=== PATIENT | male | born 1985 | race Caucasian/White ===

== ENCOUNTER 2020-06-26 03:26 | Emergency (ER) | payer OTHER, SELFPAY ==
[2020-06-26] VITALS (17 sets, daily range): BP systolic 104–122; BP diastolic 61–93; PULSE 59–80; RESP 15–20; TEMP 37; O2SAT 98–100
--- NOTE | 2020-06-26 03:27 | PC.NURSE ---
ERP VORB no lab work or other testing needs to be performed on PT. RN to continue to monitor via telemetry.
--- NOTE | 2020-06-26 03:27 | PC.NURSE ---
per ERP pt placed on telemetry for cardiac and respiratory monitoring.
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
--- NOTE | 2020-06-26 06:25 | PC.NURSE ---
attempted to call pt. girlfriend Linda. Pt. girlfriend's phone is not taking phone calls at this time.
--- NOTE | 2020-06-26 06:38 | PC.NURSE ---
Called pt. mother to pick pt. up. states she is in [place] right now and cannot scrap picker the pt. Pt. mother states she will call the pt.'s aunt valdo to see if she can provide pt. with a ride. PT. mother states he might have to stay a while.
--- NOTE | 2020-06-26 06:49 | PC.NURSE ---
Pt. mother called back to inform RN and Pt. that aunt mary ann will be back to pick pt. up at 0830.
== END 2020-06-26 06:49 | disposition home or self-care (01) ==
PROVIDERS: Emergency Provider Emergency Medicine
DX: R41.82 Altered mental status, unspecified (principal); G40.909 Epilepsy, unspecified, not intractable, without status epilepticus; T50.905A Adverse effect of unspecified drugs, medicaments and biological substances, initial encounter
CPT/HCPCS: 99281

== ENCOUNTER 2020-12-28 18:17 | Emergency (ER) | payer OTHER, SELFPAY ==
[2020-12-28 18:34] VITALS: BP 125/80; PULSE 100; RESP 16; TEMP 36.8; O2SAT 100
--- NOTE | 2020-12-28 18:47 | ED.MALEGU ---
HPI - Male Genitourinary General Chief complaint: Urogenital-Male Stated complaint: POS STD Time Seen by Provider: 12/28/20 18:47 Source: patient and RN notes reviewed Mode of arrival: ambulatory Limitations: no limitations History of Present Illness HPI Narrative: 35-year-old male presents to the [facility] with multiple complaints. Originally wanted to be tested for hepatitis C due to girlfriend having hep C and having unprotected sex. Then wants to be tested for all the STDs . Explained to patient that we only test for 3 STDs patient started talking about painful urination, testicular swelling and tenderness. Denies any injury. States symptoms have been going on for approximately 2 weeks. Patient has a history of seizures and is noncompliant with medications states he takes it when he feels he needs to. MD Complaint: testicle pain Onset (ago): week(s) Related Data Home Medications Medication Instructions Recorded Confirmed levetiracetam PO 12/28/20 Allergies Allergy/AdvReac Type Severity Reaction Status Date / Time No Known Allergies Allergy Verified 12/28/20 19:03 Review of Systems Review of Systems: All systems reviewed & are unremarkable except as noted in HPI and below Constitutional: Constitutional: Reports no additional constitutional complaints Eyes: Eyes: Reports no additional eye complaints ENT: Reports system reviewed and no additional complaints, except as documented Cardiovascular: Cardiovascular: Reports no additional cardiovascular complaints Respiratory: Respiratory: Reports no additional respiratory complaints Gastrointestinal: Gastrointestinal: Reports no additional gastrointestinal complaints and Denies abdominal pain Genitourinary: Genitourinary: Reports as per HPI, Reports genital pain, Reports dysuria, Denies penile discharge, Denies testicular mass and Reports testicular pain Musculoskeletal: Musculoskeletal: Reports no additional musculoskeletal complaints Integumentary/Breasts: Skin/Breast: Reports system reviewed and no additional complaints, except as docu Neurologic: Reports system reviewed and no additional complaints, except as documented Psychiatric: Psychiatric: Reports no additional psychiatric complaints Allergic/Immunologic: Allergic/Immunologic: Reports no additional allergic/immunologic complaints [facility] Past Medical History Medical History (Updated 12/28/20 @ 19:06 by Chasity Huffman) Seizures Noncompliant with medications per patient Surgical History Surgical History (Updated 12/28/20 @ 19:01 by Chasity Huffman) No significant past surgical history Social History Social History (Updated 12/28/20 @ 19:02 by Chasity Huffman) Substance use: current Substance use type: marijuana and amphetamines Living arrangements: homeless Occupation/Education: unemployed Gender identity (if verbalized by the patient): Male Comments At the time of my signature, I reviewed and agree with the nursing past medical, surgical, social, and family history. There is no relevant family history pertinent to the patient complaint. Exam Const: General: cooperative, no acute distress, alert, awake, anxious and tired appearing Nutritional Appearance: average body habitus Orientation/consciousness: patient oriented x3 Limitations: no limitations HENMT: Head: normal to inspection Ears: hearing grossly normal bilaterally Eyes: General: appearance normal, both eyes and all related structures Alignment and Position: alignment normal Neck: Neck: normal visual inspection Chest: Chest palpation & inspection: normal inspection of the chest Resp: Effort & Inspection: normal respiratory effort and able to speak in complete sentences Auscultation: clear to auscultation bilaterally Cardio: Rate: regular rate Rhythm: regular rhythm GI: Inspection: normal to inspection GI Palp: Yes abdominal tenderness : Testes: no testicular mass, no testicular swelling and te
== END 2020-12-28 19:09 | disposition short-term general hospital (02) ==
PROVIDERS: Emergency Provider Nurse Practitioner
DX: N50.812 Left testicular pain (principal); N50.811 Right testicular pain; G40.909 Epilepsy, unspecified, not intractable, without status epilepticus; Z91.14 Patient's other noncompliance with medication regimen
CPT/HCPCS: 99212; G0463

== ENCOUNTER 2021-01-19 20:15 | Emergency (ER) | payer OTHER, SELFPAY ==
--- NOTE | ~2021-01-19 | XR_ITS ---
EXAMINATION: XR chest 2V EXAM DATE: 01/19/2021 20:56 INDICATION: Generalized chest pain. History of seizures. TECHNIQUE: Frontal and lateral projections of the chest obtained and reviewed. Comparison is made to prior examination from 12/02/2017. FINDINGS: The lungs are clear. There are no pleural effusions. The cardiomediastinal silhouette is within normal limits. There is no pneumothorax suspected. The bones and soft tissues are unremarkab le. Mild hyperinflation. IMPRESSION: No acute cardiopulmonary findings. Reviewed, dictated and finalized at location A. [employer]ARY [employer]CRA[employer] DES[employer]ER
[2021-01-19 20:22] VITALS: BP 149/91; PULSE 98; RESP 18; TEMP 36.6; O2SAT 99
--- NOTE | 2021-01-19 20:26 | ECG_ITS ---
Measurements Intervals [place] Rate: 95 P: 81 AR: 136 QRS: 85 QRSD: 92 T: 67 QT: 338 QTc: 427 Interpretive Statements SINUS RHYTHM NORMAL ECG Electronically Signed On 01-20-2021 5:52:57 GRAIN ELEVATOR CLERK by Tiburcio Ge D.O.
[2021-01-19 20:43] LABS: Basophils Absolute Auto 0.1 K/mm3 (0.0-0.1); Basophils Percent Auto 0.9 % (0.2-1.2); Eosinophils Absolute Auto 0.1 K/mm3 (0-0.3); Hematocrit 44.8 % (42.0-52.0); Hemoglobin 14.8 g/dL (14.0-18.0); Immature Granulocyte Absolute 0.02 K/mm3 (0.00-0.031); Immature Granulocyte Percent A 0.3 % (0-0.5); Lymphocytes Absolute Auto 2.38 K/mm3 (0.9-3.2); Lymphocytes Percent Auto 31.1 % (18.3-44.2); Mean Corpuscular Hemoglobin 29.9 pg (26-34); Mean Corpuscular Volume 90.5 fl (80-100); Mean Platelet Volume 9.2 fl (7.4-10.4); Monocytes Absolute Auto 0.9 K/mm3 (0.1-0.6); Monocytes Percent Auto 11.6 % (2.6-8.5); Neutrophils Absolute Auto 4.2 K/mm3 (1.3-6.7); Neutrophils Percent Auto 55.1 % (45.5-73.1); Platelet Count Result 266 k/mm3 (150-375); Red Blood Count 4.95 M/mm3 (4.6-6.20); White Blood Count 7.7 K/mm3 (4.5-10.0)
[2021-01-19 20:55] LABS: INR 0.9; Prothrombin Time 12.3 Seconds (11.1-14.7)
[2021-01-19 20:56] LABS: Partial Thromboplastin Time 27.6 SECONDS (22.3-36.8)
[2021-01-19 21:14] LABS: Anion Gap 5 mmol/L (8-16); Blood Urea Nitrogen 17 mg/dL (9-20); Calcium 9.8 mg/dL (8.4-10.2); Carbon Dioxide 32 mmol/L (22-30); Chloride 102 mmol/L (98-107); Estimated CRCL calculation 106 ml/min; Estimated Glomerular Filt Rate > 60; Glucose 96 mg/dL (65-110); Potassium 4.1 mmol/L (3.4-5.0); Sodium 139 mmol/L (137-145)
[2021-01-19 21:26] LABS: Troponin I < 0.012 ng/mL (0.000-0.034)
--- NOTE | 2021-01-19 23:21 | PC.NURSE ---
No answer x 2, did not notify pharmacy services director of leaving after triage. IV access per EMS in route was removed prior to pt leaving.
== END 2021-01-19 23:21 | disposition left against medical advice (07) ==
LOC: ANHED 23:22
PROVIDERS: Emergency Provider Emergency Medicine
DX: R07.9 Chest pain, unspecified (principal)
CPT/HCPCS: 36415; 71046; 80048; 84484; 85025; 85610; 85730; 93005; 99199

== ENCOUNTER 2021-09-20 19:11 | Emergency (ER) | payer OTHER, SELFPAY ==
--- NOTE | ~2021-09-20 | XR_ITS ---
XR hand RT min 3V 09/20/2021 19:40 INDICATION: Right hand pain after trauma PROCEDURE: 3 views right hand COMPARISON: 05/02/2012 FINDINGS: Fracture, dislocation or subluxation is not identified. The soft tissues appear within norm al limits. No foreign bodies are identified. IMPRESSION: 1: NO ACUTE BONE OR JOINT ABNORMALITY IDENTIFIED. Reviewed, dictated and finalized at location A.
[2021-09-20 19:27] VITALS: BP 141/93; PULSE 98; RESP 16; TEMP 36.8; O2SAT 99
--- NOTE | 2021-09-20 20:54 | ED.UPPEXIN ---
HPI - Extremity Injury (Upper) General Stated Complaint: Right Hand Pain Time Seen by Provider: 09/20/21 20:48 Source: patient Mode of arrival: ambulatory Limitations: no limitations History of Present Illness HPI narrative: Patient presents today complaining of right hand injury. States he got mad last night and punched a wall. 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 He has been taking Aleve with mild relief. Denies numbness or tingling. History of boxer's fracture in the affected hand. Related Data Home Medications Medication Instructions Recorded Confirmed levetiracetam 500 mg tablet PO 12/28/20 Allergies Allergy/AdvReac Type Severity Reaction Status Date / Time No Known Allergies Allergy Verified 12/28/20 19:03 Review of Systems Review of Systems: CONSTITUTIONAL: Denies body aches, fever, chills, or sweats. EYES: Denies visual changes, redness, or discharge. ENT: Denies rhinorrhea, congestion, sore throat, or otalgia. CARDIOVASCULAR: Denies chest pain, palpitations, or edema. RESPIRATORY: Denies cough or dyspnea. GASTROINTESTINAL: Denies abdominal pain, nausea, vomiting, or diarrhea. GENITOURINARY: Denies dysuria or hematuria. SKIN: Denies rash, itching, or wounds. MUSCULOSKELETAL: Denies back pain, or myalgia.+ Hand injury NEUROLOGIC: Denies headache, numbness, tingling, or weakness. PSYCH: Denies depression or anxiety. PMFSH Past Medical History Medical History Seizures Noncompliant with medications per patient Surgical History Surgical History No significant past surgical history Social History Social History Substance use: current Substance use type: marijuana and amphetamines Gender identity (if verbalized by the patient): Male Comments At time of signature, I have reviewed and agree with nursing past medical, surgical, social and family history unless otherwise noted. Please see nursing chart for further information. There is no relevant family history pertinent to the presenting complaint Exam Narrative: GENERAL: Well-appearing, well-nourished, and in no acute distress. HEAD: Normocephalic, atraumatic. EYES: EOMI. No redness or drainage. Conjunctivae normal. ENT: Mucous membranes pink and moist. NECK: Normal AROM. CHEST: No respiratory distress. EXTREMITIES: Right hand: Tenderness to the proximal metacarpals 3 through 5.. Bruising at the base of fingers 3 and 4. No edema noted. Distal sensation intact in all 5 fingers. Capillary refill normal. Radial pulse normal. No snuffbox tenderness. Full range of motion of all fingers and wrist. SKIN: Warm, dry, no rash. Capillary refill normal. Normal skin turgor. NEURO: No focal deficits. Alert and oriented x3. Gait steady. PSYCH: Normal affect. No signs of depression or anxiety. Course Course Level of Care: Express Care Visit Vital Signs Vital signs: Vital Signs Temperature 98.3 F 09/20/21 19:27 Pulse Rate 98 09/20/21 19:27 Respiratory Rate 16 09/20/21 19:27 Blood Pressure 141/93 H 09/20/21 19:27 Pulse Oximetry 99 09/20/21 19:27 Oxygen Delivery Room Air 09/20/21 19:27 Temperature 98.3 F 09/20/21 19:27 Pulse Rate 98 09/20/21 19:27 Respiratory Rate 16 09/20/21 19:27 Blood Pressure 141/93 H 09/20/21 19:27 Pulse Oximetry 99 09/20/21 19:27 Oxygen Delivery Room Air 09/20/21 19:27 Reviewed. Pt has been instructed to follow up with his PCP regarding his elevated blood pressure today. MDM - Extremity Injury (Upper) Differential Diagnosis Differential diagnosis: Likely sprain and strain of wrist, fracture of wrist, fracture of hand and other (Contusion) Imaging Data Radiologist's impression: ITS Impressions Hand X-Ray 09/20/21 19:45 IMPRE
== END 2021-09-20 20:55 | disposition home or self-care (01) ==
PROVIDERS: Emergency Provider Nurse Practitioner
DX: S60.221A Contusion of right hand, initial encounter (principal); W22.09XA Striking against other stationary object, initial encounter; G40.909 Epilepsy, unspecified, not intractable, without status epilepticus; Z91.14 Patient's other noncompliance with medication regimen
CPT/HCPCS: 73130; 99213; G0463

== ENCOUNTER 2021-09-21 15:50 | Emergency (ER) | payer OTHER, SELFPAY ==
[2021-09-21 16:03] VITALS: BP 143/84; PULSE 78; RESP 16; TEMP 36.9; O2SAT 100
== END 2021-09-21 16:16 | disposition left against medical advice (07) ==
PROVIDERS: Emergency Provider Nurse Practitioner Family
DX: Z53.21 Procedure and treatment not carried out due to patient leaving prior to being seen by health care provider (principal)
CPT/HCPCS: 99199

== ENCOUNTER 2022-01-04 12:06 | Emergency (ER) | payer OTHER, SELFPAY ==
[2022-01-04] VITALS (17 sets, daily range): BP systolic 113–135; BP diastolic 70–80; PULSE 79–97; RESP 11–18; TEMP 36.5; O2SAT 92–99
--- NOTE | ~2022-01-04 | CT_ITS ---
EXAMINATION: CT BRAIN W/O DATE: 01/04/2022 14:53 INDICATION: Lethargy TECHNIQUE: Computed tomography (CT) of the head was performed without intravenous contrast. The dose- length product was 681.00 mGy-cm. Automated exposure control and iterative reconstruction technique w ere employed. COMPARISON: CT dated 03/04/2018 FINDINGS: Normal brain parenchymal volume for age. Normal gimenez-white differentiation. No acute intrac ranial hemorrhage, infarction, mass or mass effect. No ventriculomegaly or midline shift. Midline sagittal images demonstrate a normal corpus callosum, c raniovertebral junction and sella turcica. Basilar cisterns are patent. Paranasal sinuses and mastoids are pneumatized. No depressed skull fractures. IMPRESSION: 1. No acute intracranial abnormality. Reviewed, dictated and finalized at location B.
--- NOTE | ~2022-01-04 | XR_ITS ---
EXAMINATION: XR chest 2V DATE: 01/04/2022 12:57 INDICATION: Chest pain and cough TECHNIQUE: AP and lateral views of the chest were obtained. COMPARISON: Chest radiograph dated 01/20/2024 FINDINGS: The lungs remain clear with no focal airspace opacities, pulmonary edema, pleural effusion or pneumot horax. The cardiomediastinal silhouette is normal. Visualized bones and soft tissues are unremarkable . IMPRESSION: 1. Normal chest radiograph. Reviewed, dictated and finalized at location A. IMPRESSION: 1. Normal chest radiograph.
--- NOTE | 2022-01-04 12:14 | ECG_ITS ---
Measurements Intervals [place] Rate: 98 P: 81 IN: 151 QRS: 82 QRSD: 109 T: 65 QT: 344 QTc: 439 Interpretive Statements SINUS RHYTHM NONSPECIFIC ST & T-WAVE ABNORMALITY BORDERLINE ECG COMPARED TO ECG 01/19/2021 20:33:26 T-WAVE ABNORMALITY NOW PRESENT Electronically Signed On 01-04-2022 16:20:47 CDT by Cortez Castillo M.D.
[2022-01-04 12:46] LABS: Basophils Absolute Auto 0.1 K/mm3 (0.0-0.1); Basophils Percent Auto 1.1 % (0.2-1.2); Eosinophils Absolute Auto 0.6 K/mm3 (0-0.3); Eosinophils Percent Auto 9.7 % (0-4.4); Hematocrit 43.1 % (42.0-52.0); Hemoglobin 14.3 g/dL (14.0-18.0); Immature Granulocyte Absolute 0.01 K/mm3 (0.00-0.031); Immature Granulocyte Percent A 0.2 % (0-0.5); Lymphocytes Absolute Auto 1.33 K/mm3 (0.9-3.2); Lymphocytes Percent Auto 20.5 % (18.3-44.2); Mean Corpuscular HGB Conc 33.2 g/dl (32-36); Mean Corpuscular Hemoglobin 29.9 pg (26-34); Mean Corpuscular Volume 90.2 fl (80-100); Mean Platelet Volume 9.4 fl (7.4-10.4); Monocytes Absolute Auto 0.7 K/mm3 (0.1-0.6); Monocytes Percent Auto 10.6 % (2.6-8.5); Neutrophils Absolute Auto 3.8 K/mm3 (1.3-6.7); Neutrophils Percent Auto 57.9 % (45.5-73.1); Platelet Count Result 265 k/mm3 (150-375); Red Blood Count 4.78 M/mm3 (4.6-6.20); Red Cell Distribution Width 13.1 % (11.5-14.5); White Blood Count 6.5 K/mm3 (4.5-10.0)
[2022-01-04 12:56] LABS: Alanine Aminotransferase 24 U/L (6-50); Albumin Level 4.5 g/dL (3.5-5.1); Alkaline Phosphatase 39 U/L (38-126); Anion Gap 13 mmol/L (8-16); Aspartate Amino Transferase 33 U/L (17-59); Bilirubin,Total 0.8 mg/dL (0.2-1.3); Blood Urea Nitrogen 10 mg/dL (9-20); Calcium 8.6 mg/dL (8.4-10.2); Carbon Dioxide 23 mmol/L (22-30); Chloride 105 mmol/L (98-107); Estimated CRCL calculation 97 ml/min; Estimated Glomerular Filt Rate > 60; Glucose 118 mg/dL (65-110); INR 1.1; Lipase 61 U/L (23-300); Potassium 3.9 mmol/L (3.4-5.0); Prothrombin Time 13.9 Seconds (11.1-14.7); Sodium 141 mmol/L (137-145)
[2022-01-04 12:57] LABS: Partial Thromboplastin Time 27.8 SECONDS (22.3-36.8)
[2022-01-04 13:06] LABS: Troponin I < 0.012 ng/mL (0.000-0.034)
--- NOTE | 2022-01-04 13:07 | PC.NURSE ---
Patient unable to verbalize about his pain. Patient slurring his words.
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
== END 2022-01-04 15:23 | disposition home or self-care (01) ==
PROVIDERS: Emergency Provider Emergency Medicine
DX: R07.9 Chest pain, unspecified (principal); F15.90 Other stimulant use, unspecified, uncomplicated; R94.31 Abnormal electrocardiogram [ECG] [EKG]
CPT/HCPCS: 36415; 70450; 71046; 80053; 83690; 84484; 85025; 85610; 85730; 93005; 99284

== ENCOUNTER 2022-12-01 18:06 | Emergency (ER) | payer OTHER, SELFPAY ==
[2022-12-01 18:46] VITALS: BP 141/94; PULSE 83; RESP 16; TEMP 36.7; O2SAT 99
[2022-12-01 19:00] VITALS: BP 167/109; PULSE 77; RESP 18; O2SAT 99
--- NOTE | 2022-12-01 19:38 | ED.GENADULT ---
HPI - General Adult General Chief complaint: Unspecified Stated complaint: hx seizures, out of [facility] Time Seen by Provider: 12/01/22 18:54 Source: patient Mode of arrival: ambulatory Limitations: no limitations History of Present Illness HPI narrative: This is a 37 year old male that presents to the ER for medication refill. Reports he is currently out of his Keppra. He has been out for about 3 days. He does not currently have a neurologist or primary care doctor. His last seizure was about a month ago. No other complaints or concerns. Related Data Home Medications Medication Instructions Recorded Confirmed clonidine HCl 0.1 mg tablet tablet 09/20/21 gabapentin 300 mg capsule cap 09/20/21 sertraline 100 mg tablet tablet 09/20/21 sertraline 50 mg tablet tablet 09/20/21 09/20/21 Allergies Allergy/AdvReac Type Severity Reaction Status Date / Time No Known Allergies Allergy Verified 12/01/22 18:06 Review of Systems Review of Systems: CONSTITUTIONAL: Denies fever GASTROINTESTINAL: Denies vomiting NEUROLOGIC: Denies headache, numbness, or weakness. All systems reviewed & are unremarkable except as noted in HPI and below PMFSH Past Medical History Medical History Seizures Noncompliant with medications per patient Surgical History Surgical History No significant past surgical history Social History Social History Substance use: current Substance use type: marijuana and amphetamines Living arrangements: homeless Occupation/Education: unemployed Gender identity (if verbalized by the patient): Male Exam Narrative: GENERAL: Well-appearing, well-nourished, and in no acute distress. HEAD: Normocephalic, atraumatic. EYES: EOMI. CHEST: Clear to auscultation. No respiratory distress. No wheezes rales or rhonchi HEART: Regular rate and rhythm. No murmur heard. Normal peripheral pulses. EXTREMITIES: Normal range of motion. No edema. SKIN: Warm, dry, no rash. NEURO: No focal deficits. Alert and oriented x3. PSYCH: Normal mood and affect Course Course Emergency Course: Patient given PCP and neurology for follow up. Discussed importance of medication compliance Vital Signs Vital signs: Vital Signs Temperature 98.0 F 12/01/22 18:46 Pulse Rate 83 12/01/22 18:46 Respiratory Rate 16 12/01/22 18:46 Blood Pressure 141/94 H 12/01/22 18:46 Pulse Oximetry 99 12/01/22 18:46 Oxygen Delivery Room Air 12/01/22 18:46 Temperature 98.0 F 12/01/22 18:46 Pulse Rate 77 12/01/22 19:00 Respiratory Rate 18 12/01/22 19:00 Blood Pressure 167/109 H 12/01/22 19:00 Pulse Oximetry 99 12/01/22 19:00 Oxygen Delivery Room Air 12/01/22 19:00 Medical Decision Making MDM Narrative Medical decision making narrative: Patient presents to the emergency department for medication refill. Reports he is out of his Keppra. He does not currently have a primary provider or neurologist. He has no other complaints or concerns. Given a dose of Keppra in the ED and prescription sent to the pharmacy. Patient given PCP and neurology for follow up. Discussed importance of medication compliance. He was given warnings to return to the ER Vital Signs Vital Signs: Vital Signs Temperature 98.0 F 12/01/22 18:46 Pulse Rate 83 12/01/22 18:46 Respiratory Rate 16 12/01/22 18:46 Blood Pressure 141/94 H 12/01/22 18:46 Pulse Oximetry 99 12/01/22 18:46 Oxygen Delivery Room Air 12/01/22 18:46 Temperature 98.0 F 12/01/22 18:46 Pulse Rate 77 12/01/22 19:00 Respiratory Rate 18 12/01/22 19:00 Blood Pressure 167/109 H 12/01/22 19:00 Pulse Oximetry 99 12/01/22 19:00 Oxygen Delivery Room Air 12/01/22 19:00 Critical Care Time Critical Care Time Critical Care Time: No Discharge Plan Discharge Clinica
[2022-12-01] MEDS: levETIRAcetam 500 MG TABLET PO (19:46)
[2022-12-01 19:47] VITALS: BP 152/95; PULSE 76; RESP 20; O2SAT 100
[2022-12-01 20:04] VITALS: BP 152/94; PULSE 76; RESP 20; O2SAT 98
== END 2022-12-01 20:11 | disposition home or self-care (01) ==
PROVIDERS: Emergency Provider Physician Assistant
DX: R56.9 Unspecified convulsions (principal); Z76.0 Encounter for issue of repeat prescription; Z59.00 Homelessness unspecified
CPT/HCPCS: 99281; A9270

== ENCOUNTER 2022-12-20 17:26 | Emergency (ER) | payer OTHER, SELFPAY ==
[2022-12-20 17:28] VITALS: BP 151/97; PULSE 77; RESP 16; TEMP 36.5; O2SAT 100
--- NOTE | 2022-12-20 17:45 | ED.GENADULT ---
HPI - General Adult General Chief complaint: Unspecified Stated complaint: prescription refill Time Seen by Provider: 12/20/22 17:45 Source: patient Mode of arrival: ambulatory Limitations: no limitations History of Present Illness HPI narrative: This is a 37-year-old male that presents to the emergency department for medication refill. Needs his Keppra filled. He reports he has a follow-up appointment with neurology in about 10 days. Denies any recent seizures. No other concerns. Related Data Home Medications Medication Instructions Recorded Confirmed clonidine HCl 0.1 mg tablet tablet 09/20/21 gabapentin 300 mg capsule cap 09/20/21 sertraline 100 mg tablet tablet 09/20/21 sertraline 50 mg tablet tablet 09/20/21 09/20/21 Allergies Allergy/AdvReac Type Severity Reaction Status Date / Time No Known Allergies Allergy Verified 12/01/22 18:06 Review of Systems Review of Systems: CONSTITUTIONAL: Denies fever GASTROINTESTINAL: Denies vomiting NEUROLOGIC: Denies numbness, or weakness. All systems reviewed & are unremarkable except as noted in HPI and below PMFSH Past Medical History Medical History Seizures Noncompliant with medications per patient Surgical History Surgical History No significant past surgical history Social History Social History Substance use: current Substance use type: marijuana and amphetamines Living arrangements: homeless Occupation/Education: unemployed Gender identity (if verbalized by the patient): Male Exam Narrative: GENERAL: Well-appearing, well-nourished, and in no acute distress. HEAD: Normocephalic, atraumatic. EYES: EOMI. CHEST: Clear to auscultation. No respiratory distress. No wheezes rales or rhonchi HEART: Regular rate and rhythm. No murmur heard. Normal peripheral pulses. EXTREMITIES: Normal range of motion. No edema. SKIN: Warm, dry, no rash. NEURO: No focal deficits. Alert and oriented x3. PSYCH: Normal mood and affect Course Course Emergency Course: Patient agrees with plan of care Vital Signs Vital signs: Vital Signs Temperature 97.7 F 12/20/22 17:28 Pulse Rate 77 12/20/22 17:28 Respiratory Rate 16 12/20/22 17:28 Blood Pressure 151/97 H 12/20/22 17:28 Pulse Oximetry 100 12/20/22 17:28 Oxygen Delivery Room Air 12/20/22 17:28 Temperature 97.7 F 12/20/22 17:28 Pulse Rate 77 12/20/22 17:28 Respiratory Rate 16 12/20/22 17:28 Blood Pressure 151/97 H 12/20/22 17:28 Pulse Oximetry 100 12/20/22 17:28 Oxygen Delivery Room Air 12/20/22 17:28 Medical Decision Making MDM Narrative Medical decision making narrative: Patient presents to the emergency department for medication refill. Needs his Keppra filled. He reports he has a follow-up appointment with neurology in about 10 days. Will be given prescription until he can see his specialist. He has no other concerns. Given warnings to return to the ER Vital Signs Vital Signs: Vital Signs Temperature 97.7 F 12/20/22 17:28 Pulse Rate 77 12/20/22 17:28 Respiratory Rate 16 12/20/22 17:28 Blood Pressure 151/97 H 12/20/22 17:28 Pulse Oximetry 100 12/20/22 17:28 Oxygen Delivery Room Air 12/20/22 17:28 Temperature 97.7 F 12/20/22 17:28 Pulse Rate 77 12/20/22 17:28 Respiratory Rate 16 12/20/22 17:28 Blood Pressure 151/97 H 12/20/22 17:28 Pulse Oximetry 100 12/20/22 17:28 Oxygen Delivery Room Air 12/20/22 17:28 Critical Care Time Critical Care Time Critical Care Time: No Discharge Plan Discharge Clinical Impression: Medication refill Patient Disposition: Home, Self-Care Condition: Stable Instructions: Medicine Refill (ED) Additional Instructions: Return to the emergency department if you experience fever, chest pain, shortness
== END 2022-12-20 17:52 | disposition home or self-care (01) ==
LOC: ANHED 17:48
PROVIDERS: Emergency Provider Physician Assistant
DX: R56.9 Unspecified convulsions (principal); Z76.0 Encounter for issue of repeat prescription
CPT/HCPCS: 99281

== ENCOUNTER 2023-05-06 08:43 | Outpatient (CLI) | payer OTHER, SELFPAY ==
--- NOTE | 2023-05-10 09:27 | WPDNEUROLOGY ---
Neurology EEG Report General Information Date of Study: 05/06/23 TEST eeg DIAGNOSIS Seizures CONDITION OF RECORDING awake drowsy and sleep EEG NUMBER [id number] CLINICAL HISTORY patient reports he started having seizures years ago when he was using drugs. Would have several episodes per month but he has been clean for over a year and still has grand mal seizure every couple of months. EEG DESCRIPTION Basic resting occipital frequency consists of low voltage 8 to 10 hertz per 2nd alpha admixed with low-voltage 15 to 18 hertz per 2nd beta. Normal cinthia posterior gradient is noted. Hyperventilation produced normal and symmetrical buildup with no paroxysmal activity. Low-voltage beta activity is noted diffusely during drowsiness with waxing and waning posterior alpha activity bilateral symmetrical sleep activity is noted with mixture of beta theta and delta activity and symmetrical sleep spindles. Non paroxysmal. Nonfocal. Non lateralizing. IMPRESSION Normal record
== END 2023-05-06 08:44 | disposition home or self-care (01) ==
PROVIDERS: Visit Provider Student in an Organized Health Care Education/Training Program
DX: R56.9 Unspecified convulsions (principal)
CPT/HCPCS: 71046; 95816

== ENCOUNTER → 2023-05-06 11:46 | Outpatient (CLI) | payer OTHER, SELFPAY ==
--- NOTE | ~2023-05-06 | XR_ITS ---
Clinical Indication: Smoking history PA and lateral views of the chest: Comparison: 01/04/2022 Findings: The lungs are clear, without evidence of focal consolidation or pleural effusion. Cardiome diastinal silhouette is within normal limits. Bones and soft tissues are unremarkable. Impression: Normal chest. Reviewed, dictated and finalized at location . [employer] Impression: Normal chest.
== END ==
PROVIDERS: PCP Emergency Medicine; Visit Provider Emergency Medicine
DX: F17.200 Nicotine dependence, unspecified, uncomplicated (principal)
CPT/HCPCS: 71046

== ENCOUNTER 2023-07-10 17:29 | Emergency (ER) | payer OTHER, SELFPAY ==
[2023-07-10 17:27] VITALS: BP 139/86; PULSE 123; RESP 24; TEMP 37.3; O2SAT 98
[2023-07-10 17:32] VITALS: O2SAT 98
[2023-07-10 17:34] VITALS: PULSE 123
--- NOTE | 2023-07-10 17:35 | ECG_ITS ---
SEE SCANNED COPY FOR CONFIRMED REPORT MTDD
[2023-07-10 17:59] LABS: Basophils Absolute Auto 0.1 K/mm3 (0.0-0.1); Basophils Percent Auto 0.6 % (0.2-1.2); Eosinophils Percent Auto 0.3 % (0-4.4); Hematocrit 47.3 % (42.0-52.0); Hemoglobin 15.5 g/dL (14.0-18.0); Immature Granulocyte Absolute 0.04 K/mm3 (0.00-0.031); Immature Granulocyte Percent A 0.3 % (0-0.5); Lymphocytes Absolute Auto 1.62 K/mm3 (0.9-3.2); Lymphocytes Percent Auto 13.9 % (18.3-44.2); Mean Corpuscular HGB Conc 32.8 g/dl (32-36); Mean Corpuscular Hemoglobin 30.9 pg (26-34); Mean Corpuscular Volume 94.4 fl (80-100); Mean Platelet Volume 9.3 fl (7.4-10.4); Monocytes Absolute Auto 1.4 K/mm3 (0.1-0.6); Monocytes Percent Auto 12.3 % (2.6-8.5); Neutrophils Absolute Auto 8.5 K/mm3 (1.3-6.7); Neutrophils Percent Auto 72.6 % (45.5-73.1); Platelet Count Result 286 k/mm3 (150-375); Red Blood Count 5.01 M/mm3 (4.6-6.20); Red Cell Distribution Width 14.1 % (11.5-14.5); White Blood Count 11.7 K/mm3 (4.5-10.0)
[2023-07-10] MEDS: levETIRAcetam 1000MG/NACL100ML 1,000 MG/100 ML BAG 400 MG IVPB (18:00)
[2023-07-10] MEDS: SODIUM CHLORIDE 0.9% IV 1,000 ML 999 ML IV CONT (18:00)
[2023-07-10 18:01] VITALS: BP 154/92; PULSE 115; RESP 19; TEMP 36.7; O2SAT 96
--- NOTE | 2023-07-10 18:26 | PC.NURSE ---
Upon RN entering pt room noted pt girlfriend in bed with pt. monitor leads off. RN requested girlfriend to sit in the chair, so monitor equipment would stay intact, so RN can collect accurate monitoring information. Pt denies any h/a, nausea or muscle pain. States is feeling better
[2023-07-10 18:30] VITALS: BP 144/87; PULSE 101; RESP 18; TEMP 36.7; O2SAT 98
[2023-07-10 18:31] LABS: Alanine Aminotransferase 38 U/L (6-50); Albumin Level 4.9 g/dL (3.5-5.1); Alkaline Phosphatase 77 U/L (38-126); Anion Gap 20 mmol/L (4-12); Aspartate Amino Transferase 34 U/L (17-59); Bilirubin,Total 0.5 mg/dL (0.2-1.3); Blood Urea Nitrogen 7 mg/dL (9-20); Calcium 9.5 mg/dL (8.4-10.2); Carbon Dioxide 14 mmol/L (22-30); Chloride 103 mmol/L (98-107); Estimated CRCL calculation 96 ml/min; Estimated Glomerular Filt Rate > 60; Glucose 137 mg/dL (65-110); Potassium 3.5 mmol/L (3.4-5.0); Sodium 137 mmol/L (137-145)
--- NOTE | 2023-07-10 19:19 | ED.SEIZURE ---
HPI - Seizure General Chief Complaint: Seizure Stated Complaint: Seizure Time Seen by Provider: 07/10/23 17:39 History of Present Illness HPI Narrative: Patient is a 37-year-old male with history of seizure disorder who presents ER after having seizure. Witnessed by girlfriend. Arms for an extension. Patient is reporting that he has been compliant with medication but significant other is unsure. Will order patient has no loss of urine. No reports of trauma. Seizure History: Yes Related Data Allergies Allergy/AdvReac Type Severity Reaction Status Date / Time No Known Allergies Allergy Verified 07/10/23 17:35 Review of Systems Review of Systems: ROS unobtainable: Yes unobtainable due to mental status PMFSH Past Medical History Medical History Seizures Noncompliant with medications per patient Surgical History Surgical History No significant past surgical history Social History Social History (Updated 04/18/23 @ 09:32 by KATHY Funez) Smoking packs per day: 0.5 Smoking cigarettes per day: 10.0 Smoking status: Current every day smoker Alcohol intake: current Alcohol use details: Occasionally Substance use: former Substance use type: marijuana and amphetamines Do You Feel Safe in your Home?: Yes Lack of Transportation: No Lack of Food: Never True Current Housing: I Have Housing Concerned About Future Housing: No Difficulty Paying Gas/Electric Bills: No Difficulty Paying for Meds: No Currently Unemployed: No Education: High School Diploma/GED Difficulty w/ Childcare or Family Care: No Living arrangements: homeless Occupation/Education: unemployed Gender identity (if verbalized by the patient): Male Exam Narrative: GENERAL: Well-appearing, well-nourished, and in no acute distress. HEAD: Normocephalic, atraumatic. ENT: Mucous membranes moist. Bite sherif left lateral tongue. Metal plates screwed into the upper jaw on the right side CHEST: Clear to auscultation. No respiratory distress. HEART: tachycardic and regular. Normal peripheral pulses. ABDOMEN: Soft, nontender, nondistended. EXTREMITIES: Normal range of motion. No edema. SKIN: Warm, dry, no rash. NEURO: Alert and oriented x2-3. PSYCH: Normal mood and affect. Course Course Emergency Course: Patient hydrated and given 1 g of Keppra. He is awake alert orient x3. He is much more alert than he was earlier. He endorses missing medication for several days. Educated that he received 1 g of Keppra here and he can take a reduced dose this evening. Vital Signs Vital signs: Vital Signs Temperature 99.2 F 07/10/23 17:27 Pulse Rate 123 H 07/10/23 17:27 Respiratory Rate 24 H 07/10/23 17:27 Blood Pressure 139/86 07/10/23 17:27 Pulse Oximetry 98 07/10/23 17:27 Oxygen Delivery Room Air 07/10/23 17:27 Temperature 98.1 F 07/10/23 18:30 Pulse Rate 101 H 07/10/23 18:30 Respiratory Rate 18 07/10/23 18:30 Blood Pressure 144/87 H 07/10/23 18:30 Pulse Oximetry 98 07/10/23 18:30 Oxygen Delivery Room Air 07/10/23 17:32 MDM - Seizure Lab Data 07/10/23 17:52 07/10/23 17:52 Labs: Lab Results 07/10/23 Range/Units 17:52 WBC 11.7 H (4.5-10.0) K/mm3 RBC 5.01 (4.6-6.20) M/mm3 Hgb 15.5 (14.0-18.0) g/dL Hct 47.3 (42.0-52.0) % MCV 94.4 (80-100) fl MCH 30.9 (26-34) pg MCHC 32.8 (32-36) g/dl RDW 14.1 (11.5-14.5) % Plt Count 286 (150-375) k/mm3 MPV 9.3 (7.4-10.4) fl Immature Gran % (Auto) 0.3 (0-0.5) % Neut % (Auto) 72.6 (45.5-73.1) % Lymph % (Auto) 13.9 L (18.3-44.2) % Cass % (Auto) 12.3 H (2.6-8.5) % Eos % (Auto) 0.3 (0-4.4) % Baso % (Auto) 0.6 (0.2-1.2) % Lymph # (Auto) 1.62 (0.9-3.2) K/mm3 Cass # (Auto) 1.4 H (0.1-0.6) K/mm3 Eos # (Auto) 0.0 (0-0.3) K/mm3
== END 2023-07-10 19:33 | disposition home or self-care (01) ==
PROVIDERS: Emergency Provider Emergency Medicine; PCP Emergency Medicine
DX: G40.909 Epilepsy, unspecified, not intractable, without status epilepticus (principal); F17.210 Nicotine dependence, cigarettes, uncomplicated
CPT/HCPCS: 36415; 80053; 85025; 93005; 96365; 99284; J1953; J7030

== ENCOUNTER 2023-08-09 11:22 | Emergency (ER) | payer OTHER, SELFPAY ==
[2023-08-09 11:23] VITALS: BP 146/91; PULSE 70; RESP 18; TEMP 36.6; O2SAT 100
[2023-08-09 11:45] VITALS: BP 130/74; PULSE 74; PULSE 76; RESP 18; O2SAT 100
--- NOTE | 2023-08-09 12:05 | ED.GENADULT ---
HPI - General Adult General Chief complaint: Seizure Stated complaint: seizure Time Seen by Provider: 08/09/23 11:59 History of Present Illness HPI narrative: Patient is a 38-year-old male with history of prior polysubstance use, clear for the last 1 year, seizures here with the prodrome of a seizure. 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 He states that he stopped the machine he was monitoring and contact his boss called an ambulance to bring him into the emergency department. He denies ever having any seizure-like activity today, only his prodrome. He has a history of seizures for many years, initially was thought to be due to his prior drug use, he has been clean for approximately 1 year. He follows with Dr. Morejon. He is initially prescribed 1500 mg b.i.d. of Keppra however he states that it makes his behavior more erratic and he has increased anger when he takes a high dose during the day so he was instructed by Dr. Morejon to take 750 mg in the morning and 1500 mg at night. He has a seizure a few times a year when he is compliant with his medications. His last seizure was last month, at that time he was not adherent to his medications. Related Data Allergies Allergy/AdvReac Type Severity Reaction Status Date / Time No Known Allergies Allergy Verified 08/09/23 11:27 Review of Systems Review of Systems: All systems reviewed & are unremarkable except as noted in HPI and below PMFSH Past Medical History Medical History Seizures Noncompliant with medications per patient Surgical History Surgical History No significant past surgical history Social History Social History (Updated 04/18/23 @ 09:32 by KATHY Funez) Smoking packs per day: 0.5 Smoking cigarettes per day: 10.0 Smoking status: Current every day smoker Alcohol intake: current Alcohol use details: Occasionally Substance use: former Substance use type: marijuana and amphetamines Do You Feel Safe in your Home?: Yes Lack of Transportation: No Lack of Food: Never True Current Housing: I Have Housing Concerned About Future Housing: No Difficulty Paying Gas/Electric Bills: No Difficulty Paying for Meds: No Currently Unemployed: No Education: High School Diploma/GED Difficulty w/ Childcare or Family Care: No Living arrangements: homeless Occupation/Education: unemployed Gender identity (if verbalized by the patient): Male Exam Narrative: GENERAL: Well-appearing, well-nourished, and in no acute distress. HEAD: Normocephalic, atraumatic. EYES: PERRLA and EOMI. ENT: Nares clear. Mucous membranes moist. NECK: Supple. CHEST: Clear to auscultation. No respiratory distress. HEART: Regular rate and rhythm. Normal peripheral pulses. ABDOMEN: Soft, nontender, nondistended. EXTREMITIES: Normal range of motion. No edema. SKIN: Warm, dry, no rash. NEURO: No focal deficits. Alert and oriented x3. PSYCH: Normal mood and affect. Course Course Emergency Course: Chart review performed. Patient here feeling light headed. Reportedly how he normally feels prior to having a seizure. Prescribed 1500 BID of keppra but only takes 750 in am and 1500 at night. ED visit on 07/10/23 notes he was here after having a seizure witnessed by girlfriend. He had endorsed missing several days of medication that time. Patient seen evaluated, nontoxic appearing, he is alert, oriented and he did not have any seizure-like activity today, only a prodrome. Discuss options for discussion with Neurology to see if they want to do any medication changes given the fact that he has been adherent to his advised medication regimen over the last 1 month and still almost had a seizure today. He would pref
--- NOTE | 2023-08-09 12:07 | ECG_ITS ---
SEE SCANNED COPY FOR CONFIRMED REPORT MTDD
[2023-08-09 12:15] VITALS: BP 143/98; PULSE 72; RESP 24; O2SAT 100
[2023-08-09 12:38] LABS: Basophils Absolute Auto 0.1 K/mm3 (0.0-0.1); Basophils Percent Auto 1.1 % (0.2-1.2); Eosinophils Absolute Auto 0.1 K/mm3 (0-0.3); Eosinophils Percent Auto 0.8 % (0-4.4); Hematocrit 44.5 % (42.0-52.0); Hemoglobin 14.7 g/dL (14.0-18.0); Immature Granulocyte Absolute 0.01 K/mm3 (0.00-0.031); Immature Granulocyte Percent A 0.2 % (0-0.5); Lymphocytes Absolute Auto 1.63 K/mm3 (0.9-3.2); Lymphocytes Percent Auto 24.9 % (18.3-44.2); Mean Corpuscular Hemoglobin 30.8 pg (26-34); Mean Corpuscular Volume 93.3 fl (80-100); Mean Platelet Volume 9.4 fl (7.4-10.4); Monocytes Absolute Auto 0.6 K/mm3 (0.1-0.6); Monocytes Percent Auto 9.8 % (2.6-8.5); Neutrophils Absolute Auto 4.2 K/mm3 (1.3-6.7); Neutrophils Percent Auto 63.2 % (45.5-73.1); Platelet Count Result 246 k/mm3 (150-375); Red Blood Count 4.77 M/mm3 (4.6-6.20); Red Cell Distribution Width 13.8 % (11.5-14.5); White Blood Count 6.6 K/mm3 (4.5-10.0)
[2023-08-09 12:49] LABS: Alanine Aminotransferase 27 U/L (6-50); Albumin Level 4.2 g/dL (3.5-5.1); Alkaline Phosphatase 73 U/L (38-126); Anion Gap 5 mmol/L (4-12); Aspartate Amino Transferase 29 U/L (17-59); Bilirubin,Total 0.4 mg/dL (0.2-1.3); Blood Urea Nitrogen 8 mg/dL (9-20); Calcium 9.2 mg/dL (8.4-10.2); Carbon Dioxide 27 mmol/L (22-30); Chloride 107 mmol/L (98-107); Estimated CRCL calculation 105 ml/min; Estimated Glomerular Filt Rate > 60; Glucose 92 mg/dL (65-110); Magnesium 1.9 mg/dL (1.6-2.3); Sodium 139 mmol/L (137-145)
[2023-08-09] MEDS: levETIRAcetam 1000MG/NACL100ML 1,000 MG/100 ML BAG 400 MG IVPB (13:26)
[2023-08-09 13:45] VITALS: BP 142/85; PULSE 73; RESP 16; O2SAT 100
== END 2023-08-09 13:46 | disposition home or self-care (01) ==
PROVIDERS: Emergency Provider Student in an Organized Health Care Education/Training Program; PCP Emergency Medicine
DX: R42 Dizziness and giddiness (principal); G40.909 Epilepsy, unspecified, not intractable, without status epilepticus; F17.210 Nicotine dependence, cigarettes, uncomplicated
CPT/HCPCS: 36415; 80053; 83735; 85025; 93005; 96374; 99284; J1953

== ENCOUNTER 2024-11-07 14:12 | Emergency (ER) | payer OTHER, SELFPAY ==
[2024-11-07] VITALS (7 sets, daily range): BP systolic 102–144; BP diastolic 40–87; PULSE 83–120; RESP 14–23; TEMP 36.9; O2SAT 93–100
--- NOTE | ~2024-11-07 | XR_ITS ---
EXAMINATION: XR elbow LT min 3V DATE: 11/07/2024 17:41 INDICATION: Left elbow pain TECHNIQUE: Anteroposterior, oblique and lateral views of the left elbow were obtained. COMPARISON: None. FINDINGS: Alignment is normal. No fracture or joint effusion. Small olecranon spur. Peripheral IV at the antecubital fossa. Soft tissues are unremarkable. No left elbow joint effusion. IMPRESSION: 1. No left elbow joint effusion or acute osseous abnormality. Reviewed, dictated and finalized at location A.
--- NOTE | ~2024-11-07 | CT_ITS ---
EXAMINATION: CT brain wo con DATE: 11/07/2024 17:08 INDICATION: Seizure TECHNIQUE: Computed tomography (CT) of the head was performed without intravenous contrast. Sagittal and coronal reconstructions were performed. The mA was adjusted according to patient size. Iterative reconstruction technique was employed. The dose-length product was 681.00 mGy-cm. COMPARISON: head CT dated 01/04/2022 FINDINGS: No acute intracranial hemorrhage, acute infarction or abnormal extra axial fluid collection. Ventricles are normal and symmetric. No mass/mass effect. The orbits, paranasal sinuses and mastoid air cells are normal. IMPRESSION: 1. Normal head CT. Reviewed, dictated and finalized at location A. IMPRESSION: 1. Normal head CT.
--- NOTE | 2024-11-07 14:23 | ECG_ITS ---
Test Date: 2024-11-07 14:31:41 Measurements Intervals [place] Rate: 111 P: 75 RI: 147 QRS: 72 QRSD: 99 T: 53 QT: 301 QTc: 409 Interpretive Statements SINUS TACHYCARDIA BASELINE ARTIFACT- V4-V6 ABNORMAL ECG No previous ECG available for comparison Electronically Signed On 11-07-2024 14:35:11 CDT by Tiburcio Ge D.O.
--- OUTSIDE RECORDS SUMMARY | 2024-11-07 14:32 | XMS_ITS | Clinical Summary ---
Author Organization [email or web address] Address [address] [place] [address] Care Team Providers Care Checkerer Hand Name Role Phone Jacquelyn Coburn MD Unavailable Adan Tinsley MD Primary Care Provider [phone] Source Comments [email or web address],non-owned Affiliates and Associated Physician Practices is amultiple site organization consisting of ambulatory clinics and hospital sitesin [place], [place], [place] and [place]. This disclosure is being madepursuant to the Care Everywhere program and may not contain all information available regarding this patient. Last updated 17.[email or web address] Allergies No known active allergies Medications * Be aware that medications may not be up to date on this document. Alwaysverify current medications with the patient. levETIRAcetam (Keppra) 100 MG/ML oral solution Take 7.5 mL by mouth 2 times daily 473 mL 4 Active ondansetron, disintegrating, (Zofran ODT) 4 MG tablet Take 1 (one) tablet by mouth every 6 hours as needed for Nausea/Vomiting Allow tablet to dissolve on the tongue 30 tablet 4 Active Additional Information Patient not taking.Reported on 07/13/2023 vitamin D, ergocalciferol, (Drisdol) 1.25 MG (98676 UT) capsule Take 1 (one) capsule by mouth every 7 days 4 Active Immunizations Immunization Administration Dates Next Due DTaP VACCINE IM (6wk-6yrs) 07/31/1990,,02/18/1987,1986,10/24 HEP B VACCINE, PED/ADOL 11/28/1996,10/25/1995, HIB VACCINE 01/26/1988 MMR VACCINE 07/31/1990,10/30/1987 POLIO OPV 07/31/1990, 8,02/18/1987,1986,10/24 TD (AGE 8-ADULT) 08/02/2000 Social History Tobacco Use Types Packs/Day Years Used Date Smoking Tobacco: Every Day Cigarettes 0.5 20 Started: 2005 Smokeless Tobacco: Never Tobacco Cessation:Ready to Q uit: Not Asked; Counseling Given: Not Answered Alcohol Use Standard Drinks/Week Comments Yes 0 (1 standard drink = 0.6 oz pur e alcohol) OCC AUDIT-C Answer Date Recorded Q1: How often do you have a drink containing alc ohol? 2-4 times a month 07/13/2023 Q2: How many drinks containi ng alcohol do you have on a typical day when you are drinking? 1 or 2 07/13/2023 Q3: How often do you have si x or more drinks on one occasion? 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 Gender Identity Not on file Sexual Orientation Not on file Last Filed Vital Signs Vital Sign Reading Time Taken Comments Blood Pressure 140/95 07/13/2023 2:15 PM CDT Pulse 71 07/13/2023 2:15 PM CDT Temperature 36.6 C (97.8 F) 07/13/2023 1:50 PM CDT Respiratory Rate 20 07/13/2023 2:15 PM CDT Oxygen Saturation 98% 07/13/2023 2:15 PM CDT Inhaled Oxygen Concentration 45% 05/25/2023 3 :43 PM CDT Weight 82.5 kg (181 lb 12.8 oz) 024 12:28 PM CDT Height 180.3 cm (5' 11) 07/13/2023 12: 28 PM CDT Body Mass Index 25.36 07/13/2023 12:28 PM CDT Plan of Treatment Health Maintenance Due Date Last Done Comments HIV SCREENING 2001 HEPATITIS C SCREENING 07/12/2004 PNEUMOCOCCAL VACCINE (1 of 2 - PCV) 2005 DTAP/TDAP/TD VACCINES (7 - Td or Tdap) 08/02/2010 08/02/2000, 07/31/1990, 01/26/1988, Additional history exists HPV VACCINE (1 - 3-dose SCDM series) 2013 COVID-19 VACCINE ( - season) 2023 DEPRESSION SCREENING 03/14/2024 INFLUENZA VACCINE (#1) 2024 ZOSTER VACCINE (1 of 2) 2036 HIB VACCINE Completed 01/26/1988 HEPATITIS B VACCINE Completed 11/28/1996, 10/25/1995, 09/16/1995 MENINGOCOCCAL (Group B) VACCINE SHARED DECISION-MAKING Aged Out No longer eligible based on patient's age to complete this topic MENINGOCOCCAL GROUPS A/C/Y/W VACCINE Aged Out No longer eligible based on patient's age to complete this topic Medical Devices Explanted Type Area Supervisor Roving Device Identifier Shelf Expiration Date Model / Serial / Lot Screw 2mm 8mm Slf Drl Xpn Lgt Wire Mndb Explanted:Qty : 8 on 05/25/2023 at [facility] N/A: [employer] [place] [employer] [id number] / / Screw 2mm 5mm Slf-Tap Xpn Mxlfcl Explanted:Qty : 4 on 05/25/2023 by Dre Waters MD at [facility] N/A: [employer] [place] [employer] [id number] / / Plate 4 Hl Bar Mndb [id number] Mini Str Explanted:Qty : 1 on 05/25/2023 by Dre Waters MD at [facility] N/A: [employer] [place] [employer] [id number] / / Screw 2.3mm 10mm Lck Xpn Mxlfcl Implanted:Qty : 2 on 05/25/2023 at [facility] Explanted:Qty : 2 on 07/13/2023 by Chris Ribeiro MD at [facility] N/A: [employer] [place] [employer] [id number] / / Screw 2.3mm 14mm Lck Xpn Mxlfcl Implanted:Qty : 1 on 05/25/2023 at [facility] Explanted:Qty : 1 on 07/13/2023 by Chris Ribeiro MD at [facility] N/A: [employer] [place] [employer] [id number] / / Screw 2.3mm 16mm Lck Xpn Mxlfcl Implanted:Qty : 2 on 05/25/2023 at [facility] Explanted:Qty : 2 on 07/13/2023 by Chris Ribeiro MD at [facility] N/A: [employer] [employer] [id number] / / Scr/2.3x18mm Lcking Cross Pin Implanted:Qty : 1 on 05/25/2023 at [facility] Explanted:Qty : 1 on 07/13/2023 by Chris Ribeiro MD at [facility] N/A: [employer] Maxill[employer]acial [id number] / / Plate Mxlmndb Sm Hbrd Mmf Bone Nonster Implanted:Qty : 2 on 05/25/2023 at [facility] Explanted:Qty : 2 on 07/13/2023 by Chris iRbeiro MD at [facility] N/A: [employer] [place] [employer] [id number] / / Screw 2mm 6mm Slf Drl Lck Mxlfcl Implanted:Qty : 1 on 05/25/2023 at [facility] Explanted:Qty : 1 on 07/13/2023 by Chris Ribeiro MD at [facility] N/A: [employer] [place] Craniom[employer]illofacial 50 / / Screw 2mm 8mm Slf Drl Lck Mxlfcl Implanted:Qty : 7 on 05/25/2023 at [facility] Explanted:Qty : 7 on 07/13/2023 by Chris Ribeiro MD at [facility] N/A: [employer] Craniomaxillofacial 50 / / Plate 6 Hl Bar Mndb [id number] Bone Nonster Implanted:Qty : 1 on 05/25/2023 by Dre Waters MD at [facility] Explanted:Qty : 1 on 07/13/2023 by Chris Ribeiro MD at [facility] N/A: [employer] [place] Craniomaxillofacial [id number] / / Insurance [facility] Care Teams Checkerer Hand Relationship Specialty Start Date End Date Adan Tinsley MD [address] [place] [address] PCP - General Family Medicine 06/20/23 Jacquelyn Coburn MD [address] [place] [address] Physician Internal Medicine 06/14/23
--- OUTSIDE RECORDS SUMMARY | 2024-11-07 14:33 | XMS_ITS | Clinical Summary ---
Author Organization [facility] Address [facility] [place] [address] Care Team Providers Care Research Administrator Name Role Phone None, Provider MD Primary Care Provider Unavaila ble Allergies No known active allergies Medications levETIRAcetam (KEPPRA) 500 MG tablet Take 1 tablet (500 mg total) by mouth 2 (two) times daily. Active Social History Tobacco Use Types Packs/Day Years Used Date Smoking Tobacco: Every Day Cigarettes Sex and Gender Information Value Date Recorded Sex Assigned at Not on file Legal Sex Male 3:17 AM CDT Gender Identity Not on file Sexual Orientation Not on file Last Filed Vital Signs Vital Sign Reading Time Taken Comments Blood Pressure 124/77 03/21/2023 7:54 AM SOLAR SITE ASSESSMENT SPECIALIST Pulse 88 03/21/2023 7:54 AM SOLAR SITE ASSESSMENT SPECIALIST Temperature 36.7 C (98.1 F) 03/21/2023 6:15 AM SOLAR SITE ASSESSMENT SPECIALIST Respiratory Rate 16 03/21/2023 7:54 AM SOLAR SITE ASSESSMENT SPECIALIST Oxygen Saturation 99% 03/21/2023 7:54 AM SOLAR SITE ASSESSMENT SPECIALIST Inhaled Oxygen Concentration - - Weight 93 kg (205 lb) 03/21/2023 6:15 AM SOLAR SITE ASSESSMENT SPECIALIST Height 180.3 cm (5' 11) 03/21/2023 6:15 AM SOLAR SITE ASSESSMENT SPECIALIST Body Mass Index 28.59 03/21/2023 6:15 AM SOLAR SITE ASSESSMENT SPECIALIST Plan of Treatment Health Maintenance Due Date Last Done Comments Annual Physical 1989 DTaP, Tdap and Td Vaccines (6 - Tdap) 08/03/2000 08/02/2000, 07/31/1990, 01/26/1988, Additional history exists Hepatitis C 2004 Pneumococcal Vaccine: Pediatrics (0 to 5 Years) and At-Risk Patients (6 to 49 Years) (1 of 2 - PCV) 2005 HPV Vaccines (1 - 3-dose SCDM series) 2013 COVID-19 Vaccine (2023- season) 2023 Hepatitis B Vaccines Completed 11/28/1996, 10/25/1995, 09/16/1995 Meningococcal B Vaccine Aged Out No l onger eligible based on patient's age to complete this topic Meningococcal Vaccine Aged Out No stanley vee eligible based on patient's age to complete this topic RSV Immunizations Under 20 Months Aged Out No longer eligible based on patient's age to complete this topic Insurance [employer] Care Teams Research Administrator Relationship Specialty Start Date End Date None, Provider, PCP - General UNKNOWN PHYSICIAN SPECIALTY 01/15/22
[2024-11-07] MEDS: SODIUM CHLORIDE 0.9% IV 2,000 ML 999 ML IV CONT (14:42)
[2024-11-07] MEDS: MIDAZOLAM HCL (*CRX) 2 MG/2 ML VIAL 5 MG IV PUSH (14:45)
[2024-11-07] MEDS: levETIRAcetam 1500MG/NACL100ML 1,500 MG/100 ML BAG 600 MG IVPB ×2 (14:58→15:05)
[2024-11-07 15:20] LABS: Hematocrit 48.1 % (42.0-52.0); Hemoglobin 15.2 g/dL (14.0-18.0); Immature Granulocyte Percent A 0.7 % (0-0.5); Lymphocytes Absolute Auto 2.20 K/mm3 (0.9-3.2); Mean Corpuscular HGB Conc 31.6 g/dl (32-36); Mean Corpuscular Hemoglobin 30.1 pg (26-34); Mean Corpuscular Volume 95.2 fl (80-100); Nucleated Red Blood Cells Absolute Auto 0.000 K/mm3 (0.0-0.012); Nucleated Red Blood Cells Perc 0.0 % (0.0-0.2); Platelet Count Result 334 k/mm3 (150-375); Red Blood Count 5.05 M/mm3 (4.6-6.20); White Blood Count 8.3 K/mm3 (4.5-10.0)
--- NOTE | 2024-11-07 15:30 | ED.GENADULT ---
HPI - General Adult General Chief complaint: Seizure Stated complaint: seizure Time Seen by Provider: 11/07/24 14:21 History of Present Illness HPI narrative: This is a 39-year-old male with history of seizure disorder presenting for breakthrough seizure. Patient is currently seizing and cannot provide any meaningful information. His child mother is at bedside and says they have been fighting over the weekend she has not been with him. When she is not with him he does not take his Keppra. He then has seizures. She does not know of any drug or alcohol use. She says that his health has been normal lately. Related Data Allergies Allergy/AdvReac Type Severity Reaction Status Date / Time No Known Allergies Allergy Verified 10/26/23 11:30 [facility] Past Medical History Medical History Seizures Noncompliant with medications per patient Surgical History Surgical History No significant past surgical history Social History Social History Smoking packs per day: 0.5 Smoking cigarettes per day: 10.0 Smoking status: Current every day smoker Alcohol intake: current Alcohol use details: Occasionally Substance use: former Substance use type: marijuana and amphetamines Do You Feel Safe in your Home?: Yes Lack of Transportation: No Lack of Food: Never True Current Housing: I Have Housing Concerned About Future Housing: No Difficulty Paying Gas/Electric Bills: No Difficulty Paying for Meds: No Currently Unemployed: No Education: High School Diploma/GED Difficulty w/ Childcare or Family Care: No Living arrangements: homeless Occupation/Education: unemployed Gender identity (if verbalized by the patient): Male Exam Narrative: APPEARANCE: Patient is actively seizing Head: atraumatic. EYES: Rightward gaze deviation NOSE: Atraumatic NECK: Trachea midline RESPIRATORY: Tachypneic, clear lungs CARDIOVASCULAR: Tachycardic ABDOMINAL: Non-distended MUSCULOSKELETAl: Generalized Tonic clonic movement, no deformities, small abrasion over left elbow NEURO: Seizing, moving for 4 extremities SKIN:: Warm, dry. Normal color PSYCHIATRIC: Seizing Course Vital Signs Vital signs: Vital Signs Temperature 98.4 F 11/07/24 14:16 Pulse Rate 114 H 11/07/24 14:16 Respiratory Rate 19 11/07/24 14:16 Blood Pressure 144/87 H 11/07/24 14:16 Pulse Oximetry 100 11/07/24 14:16 Oxygen Delivery Room Air 11/07/24 14:16 Temperature 98.4 F 11/07/24 14:16 Pulse Rate 83 11/07/24 16:34 Respiratory Rate 17 11/07/24 16:34 Blood Pressure 102/40 L 11/07/24 16:34 Pulse Oximetry 96 11/07/24 16:34 Oxygen Delivery Room Air 11/07/24 16:00 Medical Decision Making MDM Narrative Medical decision making narrative: -Course: 31-year-old male with history of medication noncompliance presenting for seizures. Patient was seizing on arrival and received a Keppra load as well as 5 mg of IV Versed which aborted to seizure. Workup significant for cannabinoids and amphetamines on his urine drug screen. Patient admits using methamphetamines over the weekend. Amphetamine abuse with combination of medication noncompliance is likely the cause was breakthrough seizure. Patient was monitored until he returned to his baseline mental status. He will be discharged with instructions to take his Keppra as directed and refrain from illegal drug use. -DDX includes but is not limited to: Breakthrough seizure, alcohol withdrawal seizure, drug induced seizure, medication non-compliance Vital Signs Vital Signs: Vital Signs Temperature 98.4 F 11/07/24 14:16 Pulse Rate 114 H 11/07/24 14:16 Respiratory Rate 19 11/07/24 14:16 Blood Pressure 144/87 H 11/07/24 14:16 Pulse Oximetry 100 11/07/24 14:16 Oxygen Delivery Room Air 11/07/24 14:16 Temperature 98.4 F 11/07/24 14:16 Pulse Rate 83 11/07/24 16:34 Respiratory Rate 17 11/07/24 16:34 Blood Pressure 102/40 L 11/07/24 16:34 Pulse Oximetry 96 11/07/24 16:34 Oxygen Delivery Room Air 11/07/24 16:00 Lab Data 11/07/24 15:11 11/07/24 15:11 Labs: Lab Results 11/07/24 11/07/24 11/07/24 Range/Units 14:24 14:46 15:11 WBC 8.3 (4.5-10.0) K/mm3 RBC 5.05 (4.6-6.20) M/mm3 Hgb 15.2 (14.0-18.0) g/dL Hct 48.1 (42.0-52.0) % MCV 95.2 (80-100) fl MCH 30.1 (26-34) pg MCHC 31.6 L (32-36) g/dl RDW 12.8 (11.5-14.5) % Plt Count 334 (150-375) k/mm3 MPV 9.6 (7.4-10.4) fl Immature Gran % (Auto) 0.7 H (0-0.5) % Neut % (Auto) 60.2 (45.5-73.1) % Lymph % (Auto) 26.5 (18.3-44.2) % [place] % (Auto) 9.0 H (2.6-8.5) % Eos % (Auto) 2.6 (0-4.4) % Baso % (Auto) 1.0 (0.2-1.2) % Lymph # (Auto) 2.20 (0.9-3.2) K/mm3 [place] # (Auto) 0.8 H (0.1-0.6) K/mm3 Eos # (Auto) 0.2 (0-0.3) K/mm3 Baso # (Auto) 0.1 (0.0-0.1) K/mm3 Abs Immat Gran (auto) 0.06 H (0.00-0.031) K/mm3 Absolute Neuts (auto) 5.0 (1.3-6.7) K/mm3 Absolute Nucleated RBC 0.000 (0.0-0.012) K/mm3 Nucleated RBC % 0.0 (0.0-0.2) % PT 15.5 H (11.1-14.7) Seconds INR 1.2 APTT 23.4 (22.3-36.8) Seconds Sodium 140 (137-145) mmol/L Potassium 3.7 (3.4-5.0) mmol/L Chloride 105 (98-107) mmol/L Carbon Dioxide 6 L (22-30) mmol/L Anion Gap 29 H (4-12) mmol/L BUN 4 L (9-20) mg/dL Creatinine 1.30 (0.7-1.3) mg/dL Estim Creat Clear Calc 73 ml/min Estimated GFR > 60 (59 - ) Glucose 111 H (65-110) mg/dL POC Capillary Glucose 110 H 108 H (65-105) mg/dl Lactic Acid 14.7 H* (0.7-2.0) mmol/L Calcium 9.1 (8.4-10.2) mg/dL Phosphorus 3.8 (2.5-4.5) mg/dL Magnesium 2.6 H (1.6-2.3) mg/dL Total Bilirubin 0.4 (0.2-1.3) mg/dL AST 44 (17-59) U/L ALT 37 (6-50) U/L Alkaline Phosphatase 54 (38-126) U/L Total Protein 7.2 (6.3-8.2) g/dL Albumin 4.6 (3.5-5.1) g/dL Lipase 97 (23-300) U/L Urine Color Yellow (Yellow) Urine Appearance Cloudy H (Clear) Urine pH 8.0 (5.0-9.0) Ur Specific [place] 1.012 (1.001-1.035) Urine Protein 1+ H (Negative) mg/dL Urine Glucose (UA) Negative (Negative) mg/dL Urine Ketones Negative (Negative) mg/dL Ur Blood (Man) Negative (Negative) Urine Nitrate Negative (Negative) Urine Bilirubin Negative (Negative) Urine Urobilinogen 0.2 (<2.0) mg/dL Add Ur Microanalysis Reviewed Leukocyte Esterase Rfl Negative (Negative) ZACK/UL Urine RBC 0-2 (0-2) /hpf Urine WBC 0-5 (0-3) /hpf Ur Squamous Epith Cells None seen (Few) /hpf Urine Bacteria None seen /hpf Urine Casts 11-20 Hyaline Casts Present (None) /lpf Urine Opiates Screen Negative (Negative) Urine Methadone Screen Negative (Negative) Ur Barbiturates Screen Negative (Negative) Ur Phencyclidine Scrn Negative (Negative) Ur Amphetamine Screen Positive A (Negative) U Benzodiazepines Scrn Negative (Negative) Urine Cocaine Screen Negative (Negative) U Cannabinoids Screen Positive A (Negative) Ethyl Alcohol < 10 (<10) mg/dL 11/07/24 Range/Units 17:34 WBC (4.5-10.0) K/mm3 RBC (4.6-6.20) M/mm3 Hgb (14.0-18.0) g/dL Hct (42.0-52.0) % MCV (80-100) fl MCH (26-34) pg MCHC (32-36) g/dl RDW (11.5-14.5) % Plt Count (150-375) k/mm3 MPV (7.4-10.4) fl Immature Gran % (Auto) (0-0.5) % Neut % (Auto) (45.5-73.1) % Lymph % (Auto) (18.3-44.2) % [place] % (Auto) (2.6-8.5) % Eos % (Auto) (0-4.4) % Baso % (Auto) (0.2-1.2) % Lymph # (Auto) (0.9-3.2) K/mm3 [place] # (Auto) (0.1-0.6) K/mm3 Eos # (Auto) (0-0.3) K/mm3 Baso # (Auto) (0.0-0.1) K/mm3 Abs Immat Gran (auto) (0.00-0.031) K/mm3 Absolute Neuts (auto) (1.3-6.7) K/mm3 Absolute Nucleated RBC (0.0-0.012) K/mm3 Nucleated RBC % (0.0-0.2) % PT (11.1-14.7) Seconds INR APTT (22.3-36.8) Seconds Sodium (137-145) mmol/L Potassium (3.4-5.0) mmol/L Chloride (98-107) mmol/L Carbon Dioxide (22-30) mmol/L Anion Gap (4-12) mmol/L BUN (9-20) mg/dL Creatinine (0.7-1.3) mg/dL Estim Creat Clear Calc ml/min Estimated GFR (59 - ) Glucose (65-110) mg/dL POC Capillary Glucose (65-105) mg/dl Lactic Acid 1.7 (0.7-2.0) mmol/L Calcium (8.4-10.2) mg/dL Phosphorus (2.5-4.5) mg/dL Magnesium (1.6-2.3) mg/dL Total Bilirubin (0.2-1.3) mg/dL AST (17-59) U/L ALT (6-50) U/L Alkaline Phosphatase (38-126) U/L Total Protein (6.3-8.2) g/dL Albumin (3.5-5.1) g/dL Lipase (23-300) U/L Urine Color (Yellow) Urine Appearance (Clear) Urine pH (5.0-9.0) Ur Specific [place] (1.001-1.035) Urine Protein (Negative) mg/dL Urine Glucose (UA) (Negative) mg/dL Urine Ketones (Negative) mg/dL Ur Blood (Man) (Negative) Urine Nitrate (Negative) Urine Bilirubin (Negative) Urine Urobilinogen (<2.0) mg/dL Add Ur Microanalysis Leukocyte Esterase Rfl (Negative) ZACK/UL Urine RBC (0-2) /hpf Urine WBC (0-3) /hpf Ur Squamous Epith Cells (Few) /hpf Urine Bacteria /hpf Urine Casts Hyaline Casts (None) /lpf Urine Opiates Screen (Negative) Urine Methadone Screen (Negative) Ur Barbiturates Screen (Negative) Ur Phencyclidine Scrn (Negative) Ur Amphetamine Screen (Negative) U Benzodiazepines Scrn (Negative) Urine Cocaine Screen (Negative) U Cannabinoids Screen (Negative) Ethyl Alcohol (<10) mg/dL Discharge Plan Discharge Clinical Impression: Seizure, Amphetamine abuse Patient Disposition: Home Condition: Stable Instructions: Antibiotic Form, Methamphetamine Use Disorder (ED) Additional Instructions: He was seen in the ED after a seizure. Please resume taking her Keppra as directed. Please refrain from amphetamine abuse as that will lower your seizure threshold. Return if you develop any new or worsening symptoms. Patient Language: Mongolian Prescriptions: No Action levetiracetam 500 mg tablet 750 mg PO BID Qty: 270 11RF Aptiom 600 mg tablet 600 mg PO DAILY Qty: 30 6RF Follow-up/Referrals: Adan Tinsley MD [Primary Care Provider, Family Practice]
[2024-11-07 15:31] LABS: Alanine Aminotransferase 37 U/L (6-50); Albumin Level 4.6 g/dL (3.5-5.1); Alkaline Phosphatase 54 U/L (38-126); Anion Gap 29 mmol/L (4-12); Aspartate Amino Transferase 44 U/L (17-59); Bilirubin,Total 0.4 mg/dL (0.2-1.3); Blood Urea Nitrogen 4 mg/dL (9-20); Calcium 9.1 mg/dL (8.4-10.2); Carbon Dioxide 6 mmol/L (22-30); Chloride 105 mmol/L (98-107); Estimated CRCL calculation 73 ml/min; Estimated Glomerular Filt Rate > 60; Glucose 111 mg/dL (65-110); INR 1.2; Lipase 97 U/L (23-300); Magnesium 2.6 mg/dL (1.6-2.3); Potassium 3.7 mmol/L (3.4-5.0); Prothrombin Time 15.5 Seconds (11.1-14.7); Sodium 140 mmol/L (137-145); Total Protein 7.2 g/dL (6.3-8.2)
[2024-11-07 15:32] LABS: Partial Thromboplastin Time 23.4 Seconds (22.3-36.8)
[2024-11-07] MEDS: [UNRECOGNIZED DRUG - OTHER] IVPB (15:36)
[2024-11-07] MEDS: LEVETIRACETAM IVPB (15:36)
[2024-11-07 15:39] LABS: Add Urine Microscopic? YES; Appearance Urine Cloudy (Clear); Glucose Urine UA Negative (Negative); Leukocyte Esterase Ur Negative LEU/UL (Negative); Need Manual Microscopic Reviewed; Nitrate Urine Negative (Negative); Specific Grav Ur 1.012 (1.001-1.035)
[2024-11-07 16:08] LABS: Cannabinoid Screen Urine Positive (Negative)
== END 2024-11-07 18:24 | disposition home or self-care (01) ==
PROVIDERS: Emergency Provider Emergency Medicine; PCP Emergency Medicine
DX: G40.909 Epilepsy, unspecified, not intractable, without status epilepticus (principal); F15.10 Other stimulant abuse, uncomplicated; T42.6X6A Underdosing of other antiepileptic and sedative-hypnotic drugs, initial encounter; F17.210 Nicotine dependence, cigarettes, uncomplicated; R00.0 Tachycardia, unspecified
CPT/HCPCS: 36415; 70450; 73080; 80053; 80307; 81001; 82077; 82948; 83605; 83690; 83735; 84100; 85025; 85610; 85730; 93005; 96361; 96365; 96375; 99284; J1953; J2250; J7030